=== PATIENT | male | born 1985 | race Caucasian/White ===

== ENCOUNTER 2023-01-24 21:30 | Emergency (ER) | payer MEDICAID ==
[~2023-01-24] VITALS: Ht 182.9 cm; Wt 86.2 kg
[2023-01-24 22:39] VITALS: BP 128/72; TEMP 98.6; O2SAT 98
[2023-01-24] MEDS ORDERED: IBUP-1955 PO (22:48)
[2023-01-24] MEDS ORDERED: AMOX-430 PO (22:48)
== END 2023-01-24 23:00 | disposition home or self-care (01) ==
LOC: ER 21:35
DX: K04.7 Periapical abscess without sinus (principal); Z60.2 Problems related to living alone